=== PATIENT | male | born 1990 | race African-American/Black ===

== ENCOUNTER 2017-08-13 08:57 | Emergency (ER) | payer BC, OTHER ==
[~2017-08-13] VITALS: Ht 182.9 cm; Wt 69.4 kg
[2017-08-13 09:11] VITALS: BP 142/63
[2017-08-13 09:15] LABS: APPEARANCE,URINE CLEAR; BILIRUBIN, URINE NEGATIVE (NEGATIVE); GLUCOSE, URINE (UA) NEGATIVE (NEGATIVE); KETONES,URINE NEGATIVE (NEGATIVE); LEUKOCYTE ESTERASE ,URINE 1+ (NEGATIVE); NITRITE,URINE NEGATIVE (NEGATIVE); PH,URINE 6 (4.5-8.0); PROTEIN,URINE 1+ (NEGATIVE); UROBILINOGEN,URINE 1 MG/DL (0.0-1.0)
--- NOTE | 2017-08-13 09:25 | Emergency Room Report ---
History of Present Illness General Chief Complaint: Lower Back Pain or Injury Source: Patient Present Illness HPI 26-year-old male comes ER complaining of bilateral kidney pain, when he points it is his erector spinae area bilaterally in the lower thoracic and upper lumbar area He reported to stiffness type pain that is worse in the mornings It started a couple days ago after playing basketball, but he doesn't remember any injury from playing basketball He denies any urinary symptoms, denies discharge, hematuria, dysuria, incontinence, hesitancy, urgency, any penile lesions, any testicular lesions, and reports she is not sexually active He denies any numbness tingling weakness or any other complaints Allergies: Coded Allergies: No Known Allergies (Unverified , 08/13/17) Patient History Past Medical History: see triage record Reviewed Nursing Documentation: PMH: Agreed; PSxH: Agreed Nursing Documentation-PMH Hx Asthma: Yes Review of Systems All Other Systems: negative except mentioned in HPI Physical Exam Vital Signs Date Time Temp Pulse Resp B/P (MAP) Pulse Ox O2 Delivery O2 Flow Rate FiO2 08/13/17 08:59 97.9 55 20 142/63 100 Room Air 97.9 Sp02 EP Interpretation: reviewed, normal General Appearance: no apparent distress, alert, non-toxic Head: normocephalic Eyes: bilateral eye normal inspection, bilateral eye PERRL, bilateral eye EOMI ENT: normal ENT inspection, hearing grossly normal, normal pharynx, no angioedema, normal voice, moist mucus membranes Neck: normal inspection, full range of motion, supple, supple/symm/no masses Respiratory: chest non-tender, lungs clear, normal breath sounds, chest symmetrical, palpation of chest normal Cardiovascular #1: normal peripheral pulses, regular rate, rhythm Cardiovascular #2: 2+ radial (R), 2+ radial (L) Gastrointestinal: normal inspection, non tender, soft, no mass, no guarding, no rebound Rectal: deferred Genitourinary: normal inspection, no CVA tenderness, penis normal, scrotum normal Musculoskeletal: back normal, gait/station normal, normal range of motion, non- tender, no calf tenderness Neurologic: alert, responsive, access clinician III-XII nml as tested, motor strength/tone normal, sensory intact, speech normal Psychiatric: judgement/insight normal, memory normal, mood/affect normal, no suicidal/homicidal ideation Skin: normal color, no rash, warm/dry, normal turgor Lymphatic: no adenopathy Medical Decision Making Reaction to Intervention: No change Diagnostic Impression: Primary Impression: Back strain ER Course Patient with normal exam, likely strain from playing basketball No red flags for serious etiology DC home with PMD f/u in 1 week after PO hydration I requested he allow us check renal function due to proteinuria, but he felt he wanted to get it done by PMD after he hydrates himself I am ok with this so will dc patient with repeat outpatient UA and basic labs checking kidney function in 1 week UA with LE pos, but only 3-4 wbc 1+ protein Last Vital Signs Date Time Temp Pulse Resp B/P (MAP) Pulse Ox O2 Delivery O2 Flow Rate FiO2 08/13/17 09:11 97.9 20 142/63 100 Room Air 97.9 08/13/17 08:59 55 Status: unchanged Disposition: HOME, SELF-CARE Condition: Stable Scripts Ibuprofen* (MOTRIN*) 600 Mg Tablet 600 MG ORAL Q8H PRN for For Pain, #20 TAB 0 Refills Prov: GUANAKO JACOB M.D 08/13/17 GUANAKO JACOB M.D Aug 13, 2017 09:25
[2017-08-13] MEDS ORDERED: IBUPROFEN600 MG ORAL (09:26)
[2017-08-13 09:40] LABS: COLOR,URINE YELLOW
[2017-08-13 10:34] VITALS: BP 142/63
== END 2017-08-13 10:35 | disposition home or self-care (01) ==
LOC: EMR 09:30
DX: S29.012A Strain of muscle and tendon of back wall of thorax, initial encounter (principal); J45.909 Unspecified asthma, uncomplicated; X58.XXXA Exposure to other specified factors, initial encounter; Y93.67 Activity, basketball; Y92.9 Unspecified place or not applicable
CPT/HCPCS: 81001; 99283